=== PATIENT | female | born 1965 | race Caucasian/White ===

== ENCOUNTER 2019-03-05 09:33 | Day surgery (SDC) | payer BC ==
[2019-03-03 14:11] VITALS: BMI 52.9
[~2019-03-05 09:33] MED LIST: LACTATED RINGERS 1,000 ML IV SCH; LIDOCAINE 1% 20 ML VIAL (10MG/ML) FOR IV START INTRADERMA PRN
[2019-03-05 09:51] VITALS: TEMP 97
[2019-03-05] MEDS ORDERED: LIDOCAINE 1% INJ 10MG/ML (20 ML MDV) ONE (10:10)
[2019-03-05] MEDS ORDERED: PROPOFOL 10 MG/ML 20 ML VIAL IV ONE (10:10)
--- NOTE | 2019-03-05 10:56 | P.PCN ---
Date of Procedure: 03/05/19 Description of Procedure: BRIEF HISTORY: Patient is a 53-year-old pleasant female scheduled for an elective colonoscopy as a part of colorectal cancer screening. The patient reports last colonoscopy was approximately 10 years ago at which time she does believe polyps were removed. She denies any signs or symptoms including unintentional weight loss, abdominal pain, change in bowel habits, hematochezia or melena. She denies any family history of colorectal cancer. PROCEDURE PERFORMED: Colonoscopy with polypectomy. PREOPERATIVE DIAGNOSIS: Personal history of polyps, colorectal cancer screening, last colonoscopy approximately 10 years ago. ESTIMATED BLOOD LOSS: Minimal. IV sedation per Anesthesia. PROCEDURE: After informed consent was obtained, the patient, was brought into the endoscopy unit. IV sedation was administered by Anesthesia under continuous monitoring. Digital rectal examination was normal. Initially the Olympus CF-190 flexible video colonoscope was then inserted in the rectum, gradually advanced into the cecum without any difficulty. Careful examination was performed as the scope was gradually being withdrawn. Ileocecal valve and the appendiceal orifice were visualized and appeared normal. Prep was excellent. Mucosa of the cecum, ascending colon, transverse colon, descending colon, sigmoid colon, and rectum appeared normal. A 5 mm sessile hepatic flexure polyp was removed with cold forcep polypectomy. A 6 mm sessile transverse colon polyp was removed with cold snare polypectomy. A 2 mm sessile descending colon polyp was removed with cold forcep polypectomy. Mild internal hemorrhoids noted. Retroflexion was performed in the rectum and no lesions were seen. The patient tolerated the procedure well. IMPRESSION: Cold snare polypectomy of a transverse colon polyp. Cold forcep polypectomy of diminutive polyps in the hepatic flexure and descending colon. Mild internal hemorrhoids. Normal-appearing colon from rectum to cecum. RECOMMENDATIONS: Findings of this examination were discussed with the patient and her . Okay to resume diet. Await pathology from polypectomies. Anticipate repeat colonoscopy in 3-5 years depending on pathology from polyps..
[2019-03-05 11:08] VITALS: BP 150/90; PULSE 67; RESP 18
== END 2019-03-05 11:31 | disposition home or self-care (01) ==
LOC: ORWHC2ENDO 09:33
PROVIDERS: ATTEND Internal Medicine
DX: Z12.11 Encounter for screening for malignant neoplasm of colon (principal); D12.3 Benign neoplasm of transverse colon; D12.4 Benign neoplasm of descending colon; K64.8 Other hemorrhoids; Z86.010 Personal history of colon polyps; I10 Essential (primary) hypertension; E11.9 Type 2 diabetes mellitus without complications; F39 Unspecified mood [affective] disorder; Z79.82 Long term (current) use of aspirin; Z79.899 Other long term (current) drug therapy
CPT/HCPCS: 88305; 45380; 45385; J2001; J2704